=== PATIENT | male | born 1950 | race Caucasian/White ===

== ENCOUNTER → 2017-02-02 | Outpatient (CLI) | payer OTHER ==
[~2017-02-02] MED LIST: ASPI-482 PO; CHOL100014 PO; CRESTOR10 MG PO; CYAN1TAB28 PO; LORA10TA3 PO; NIAC750T4 PO; OMEP20CA9 PO; SAW450CA2 PO; SILD20TA2 PO; TRAM50TA PO
--- NOTE | 2017-02-02 17:39 | RAD ---
CT CHEST WITHOUT CONTRAST History: Follow-up pulmonary nodule Comparison: Chest CT dated 01/29/2016 Technique: Helical CT of the chest was performed without contrast. Axial and coronal reconstructions were obtained. Findings: The thyroid is symmetric. Calcified mediastinal and right hilar lymph nodes related to remote granulomatous disease. There is no significant axillary, mediastinal, or hilar adenopathy. There is mild scattered atherosclerotic calcification of the thoracic aorta. The thoracic aorta diameter is normal. The central airways are patent. The cardiac size is normal. There is no pericardial effusion. Bilateral dependent atelectasis. No significant change in scattered 2 to 4 mm bilateral pulmonary nodules. No new suspicious nodules. Right lower lobe calcified granuloma. There is no focal consolidation, pleural effusion, or pneumothorax. Gynecomastia. The visualized upper abdomen is unremarkable. There are mild degenerative changes of the thoracic spine. IMPRESSION: 1. No significant change in scattered 2 to 4 mm bilateral pulmonary nodules. No new suspicious nodules. Following Fleischner criteria below, no further follow-up is required. Nodules detected incidentally at non-screening CT Nodule size (mm) less than or equal to 4 Low Risk patients- no follow-up needed High Risk patients- follow-up at 12 months and if no change, no further imaging needed. Nodule size > 4-6 mm Low risk patients- follow- up at 12 months and if no change, no further imaging needed High risk patients- initial follow-up CT at 6-12 months and then at 18-24 months if no change. Nodule Size > 6-8 mm Low risk patients- initial follow-up CT at 6-12 months and then at 18-24 months if no change. High risk patients- initial follow- up CT at 3-6 months and then at 9-12 months if no change, Nodule Size >8 mm Either low or high risk patients: Follow-up CT at around 3, 9 and 24 [address], PET, and/or biopsy Note: newly detected indeterminate nodule in person 35 years of age or older. Low risk patients- minimal or absent history of smoking and/or other known risk factors. High risk patients- history of smoking or of other known risk factors. PQRS Compliance Statement: One or more of the following individualized dose reduction techniques were utilized for this examination: 1. Automated exposure control 2. Adjustment of the mA and/or kV according to patient size 3. Use of iterative reconstruction technique
== END | disposition home or self-care (01) ==
LOC: CT 10:25
PROVIDERS: ATTEND Internal Medicine Pulmonary Disease
DX: R91.1 Solitary pulmonary nodule (principal); F17.200 Nicotine dependence, unspecified, uncomplicated
CPT/HCPCS: 71250

== ENCOUNTER → 2018-02-11 | Outpatient (CLI) | payer MEDICARE, OTHER ==
[~2018-02-11] MED LIST changes: -SAW450CA2 PO; +SAW450CA7 PO
--- NOTE | 2018-02-11 11:45 | RAD ---
Examination: CT chest without contrast HISTORY: History of follow-up lung nodule COMPARISON: 02/02/2017 TECHNIQUE: Axial CT images of the chest were performed without contrast. Coronal and sagittal reformats are performed Exposure: One or more of the following individualized dose reduction techniques were utilized for this examination: 1. Automated exposure control 2. Adjustment of the mA and/or kV according to patient size 3. Use of iterative reconstruction technique FINDINGS: The visualized thyroid gland grossly appears unremarkable. The heart size grossly appears unremarkable. The ascending aorta measures 3.7 cm in transverse dimension. No evidence of pericardial effusion identified. No radiologically significant mediastinal lymphadenopathy is identified. Minimal right lung base atelectasis. Left upper lobe 4 mm nodule is similar to prior exam. No evidence of pleural effusion or pneumothorax. Minimal atelectasis left lung base and left lingula. The visualized noncontrasted liver, spleen, adrenals grossly appears unremarkable. Moderate degenerative changes thoracic spine. IMPRESSION: Unchanged left upper lobe 4 mm pulmonary nodule. Electronically signed by: Volodymyr Simms MD (02/11/2018 11:41 AM) [id number]
== END | disposition home or self-care (01) ==
LOC: CT 08:54
PROVIDERS: ATTEND Internal Medicine Pulmonary Disease
DX: M47.894 Other spondylosis, thoracic region (principal); J98.11 Atelectasis; R91.1 Solitary pulmonary nodule; Z87.891 Personal history of nicotine dependence; Z96.652 Presence of left artificial knee joint
CPT/HCPCS: 71250

== ENCOUNTER → 2019-02-10 | Outpatient (CLI) | payer MEDICARE, OTHER ==
[~2019-02-10] MED LIST changes: +OMEP20CA10 PO; -OMEP20CA9 PO
--- NOTE | 2019-02-10 10:47 | RAD ---
Examination: CT chest without contrast HISTORY: history of lung nodule, history of smoking COMPARISON: 02/21/2018 TECHNIQUE: Axial CT images of the chest were performed without contrast. Cholecystectomy, so performed Exposure: One or more of the following individualized dose reduction techniques were utilized for this examination: 1. Automated exposure control 2. Adjustment of the mA and/or kV according to patient size 3. Use of iterative reconstruction technique FINDINGS: The visualized thyroid gland grossly appears unremarkable. The central airways are patent. The heart size grossly appears unremarkable. Mild coronary artery calcifications. No radiologically significant mediastinal lymphadenopathy. Mild lung emphysematous changes. 4 mm pulmonary nodule identified in the left upper lobe of the lungs similar to prior exam. No evidence of pleural effusion or pneumothorax. Mild left lung base airspace opacities likely atelectasis or infiltrate. The visualized noncontrasted liver, spleen, adrenals grossly appears unremarkable. Mild degenerative changes thoracic spine. IMPRESSION: 1. Unchanged 4 mm nodule left upper lobe of the lung. Stable since 2017. 2. Mild left lung base airspace opacities likely atelectasis or infiltrate. 3. Mild lung emphysematous changes. Electronically signed by: Volodymyr Simms MD (02/10/2019 10:44 AM) [id number]
== END | disposition home or self-care (01) ==
LOC: CT 09:00
PROVIDERS: ATTEND Internal Medicine Pulmonary Disease
DX: I25.10 Atherosclerotic heart disease of native coronary artery without angina pectoris (principal); J43.9 Emphysema, unspecified; R91.1 Solitary pulmonary nodule; M47.814 Spondylosis without myelopathy or radiculopathy, thoracic region; Z90.49 Acquired absence of other specified parts of digestive tract
CPT/HCPCS: 71250

== ENCOUNTER → 2020-02-16 | Outpatient (CLI) | payer MEDICARE, OTHER ==
[~2020-02-16] MED LIST changes: -OMEP20CA10 PO; +OMEP20CA16 PO
--- NOTE | 2020-02-16 13:27 | RAD ---
EXAM: CT Chest without IV contrast INDICATION: Reason: LUNG NODULES / Spl. Instructions: / History: TECHNIQUE: Multi-detector row CT images were acquired from the thoracic inlet through the upper abdomen without the use of IV contrast. Sagittal and coronal images were acquired from the transaxial data. All CT scans performed at this facility utilize dose optimization techniques as appropriate to the exam, including the following: Automated exposure control and adjustment of the mA and/or KV according to patient size (this includes techniques or standardized protocols for targeted exams where dose is indication/reason for exam). COMPARISON: Chest CT 02/11/2018 and 02/10/2019 FINDINGS: The absence of IV contrast limits evaluation of soft tissue pathology. CARDIOVASCULAR: Unremarkable MEDIASTINUM & DORIS: No adenopathy or masses. LUNGS: Stable 4 mm nodule in the peripheral left upper lobe. Additional nodules less than 5 mm in size are present, showing no significant interval change. PLEURAL SPACE: No pleural effusions or pneumothorax. OSSEOUS & SOFT TISSUE: Unremarkable ABDOMEN: The visualized portions of the upper abdomen are unremarkable. IMPRESSION: Centrilobular emphysema with multiple sub-5 mm pulmonary nodules, stable over at least 2 years. No developing mass, adenopathy or lung mass. Consider annual screening if patient is at high risk for lung cancer. Electronically signed by: Nancy Le MD (02/16/2020 1:25 PM) [id number]
== END | disposition home or self-care (01) ==
LOC: CT 10:38
PROVIDERS: ATTEND Internal Medicine Pulmonary Disease
DX: J43.2 Centrilobular emphysema (principal); R91.8 Other nonspecific abnormal finding of lung field
CPT/HCPCS: 71250

== ENCOUNTER → 2021-02-17 | Outpatient (CLI) | payer MEDICARE, OTHER ==
--- NOTE | 2021-02-17 16:27 | RAD ---
EXAM: CT CHEST WITHOUT CONTRAST (LDCT LUNG CANCER SCREENING). HISTORY: Risk factors for pulmonary malignancy. Nicotine usage. TECHNIQUE: CT of the chest was performed without intravenous contrast using a low-dose lung screening protocol. Findings analysis is based on ACR Lung-RADS v1.1. *One or more of the following individual ized dose reduction techniques were utilized for this examination: 1. Automated exposure control. 2. Adjustment of the mA and/or kV according to patient size. 3. Use of iterative reconstruction technique. COMPARISON: February 16, 2020. FINDINGS: Nodules: No clinically suspicious nodules. Other findings: Images of the upper abdomen reveal no acute abnormality. Bone windows reveal no suspi cious lesions. There are no pathologically enlarged mediastinal or axillary lymph nodes. There is no pleural or monica cardial effusion. The heart is not enlarged. No pulmonary parenchymal process is identified. There are few tiny calcified granuloma in the right hilum. IMPRESSION/RECOMMENDATION: 1. ACR Lung-RADS category: 2: Benign . 2. Continue annual screening with LDCT in 12 months. Electronically signed by: Jim Gonzalez III, MD (02/17/2021 4:25 PM) [facility]
== END ==
LOC: CT 11:01
PROVIDERS: ATTEND Internal Medicine Pulmonary Disease
DX: Z12.2 Encounter for screening for malignant neoplasm of respiratory organs (principal); J84.10 Pulmonary fibrosis, unspecified; Z87.891 Personal history of nicotine dependence
CPT/HCPCS: 71271